=== PATIENT | female | born 1980 | race American Indian/Alaskan Native ===

== ENCOUNTER 2016-12-04 03:00 | Emergency (ER) | payer SELFPAY ==
[2016-12-04 03:35] LABS: Hematocrit 37.3 % (30.3-42.9); Hemoglobin 12.2 gm/dl (10.1-14.3); Mean Corpuscular HGB Conc 33 % (30-34); Mean Corpuscular Hemoglobin 29 pg (28-32); Mean Corpuscular Volume 88 fl (79-97); Platelet Count 386 K/mm3 (140-440); Red Blood Count 4.22 M/mm3 (3.65-5.03); Red Cell Distribution Width 12.5 % (13.2-15.2); White Blood Count 7.1 K/mm3 (4.5-11.0)
[2016-12-04 03:59] LABS: Alanine Aminotransferase 55 units/L (7-56); Albumin 3.8 g/dL (3.9-5); Albumin/Globulin Ratio 1.1 %; Alkaline Phosphatase 122 units/L (35-129); Anion Gap 16 mmol/L; BUN/Creatinine Ratio 15.55; Bilirubin,Total < 0.2 mg/dL (0.1-1.2); Blood Urea Nitrogen 14 mg/dL (7-17); Calcium 9.1 mg/dL (8.4-10.2); Carbon Dioxide 25 mmol/L (22-30); Chloride 102.8 mmol/L (98-107); Glucose 101 mg/dL (65-100); Lipase 64 units/L (13-60); Potassium 4.4 mmol/L (3.6-5.0); Sodium 139 mmol/L (137-145); Total Protein 7.4 g/dL (6.3-8.2)
[2016-12-04 04:56] LABS: Anisocytosis 1+; Basophils % (Manual) 0 % (0.0-1.8); Blastocytes % (Manual) 0 %
[2016-12-04 04:57] LABS: Diff Status Complete
[2016-12-04 07:46] LABS: Bacteria,Urine 1+ /HPF (Negative); Bilirubin,Urine NEG (Negative); Blood,Urine NEG (Negative); Ketones,Urine NEG (Negative); Leukocyte Esterase,Urine LG (Negative); Mucus,Urine 2+ /HPF; Nitrite,Urine POS (Negative); Protein,Urine <15 mg/dL mg/dL (Negative); Urobilinogen,Urine < 2.0 mg/dL (<2.0)
[2016-12-04 07:56] VITALS: BP 116/81
[2016-12-04] MEDS ORDERED: MOTRIN PO ONE (08:19)
--- NOTE | 2016-12-04 08:24 | Emergency Department Report ---
HPI - General Chief Complaint: Abdominal Pain Time Seen by Provider: 12/04/16 07:33 - HPI HPI: 36-year-old -[place] female with a past medical history of a tubal ligation 2003 and migraine headaches comes in today for abdominal pain that started 2 days ago. Patient reports that the pain is located in the suprapubic and lower abdomen. She reports that it also on her right lower pelvic area and right flank pain. Patient reports she notices after having intercourse. She was also reported having bleeding mixed in the mucous of her vaginal discharge after intercourse. She reports that the pain is a 9 out of 10 and is intermittent sharp is at her when laying down and applying pressure nothing makes it worse. She denies any nausea vomiting no fever no chills. ED Past Medical Hx - Past Medical History Previous Medical History?: Yes Hx Headaches / Migraines: Yes - Surgical History Past Surgical History?: Yes Additional Surgical History: tubal ligation - Social History Smoking Status: Unknown if ever smoked Substance Use Type: Marijuana - Medications Home Medications: Home Medications Medication Instructions Recorded Confirmed Last Taken Type Ibuprofen [Motrin 600 MG tab] 600 mg PO Q8H #30 tablet 12/04/16 Unknown Rx Nitrofurantoin Bucks/M-Cryst 100 mg PO Q12HR #14 capsule 12/04/16 Unknown Rx [Macrobid CAP] ED Review of Systems ROS: Stated complaint: RT SIDE ABD PAIN Other details as noted in HPI Constitutional: denies: chills, fever Eyes: denies: eye pain, eye discharge, vision change ENT: as per HPI Respiratory: denies: cough, shortness of breath, wheezing Cardiovascular: denies: chest pain, palpitations Gastrointestinal: abdominal pain. denies: nausea, vomiting, diarrhea, constipation Genitourinary: dyspareunia. denies: urgency, dysuria, frequency, hematuria Musculoskeletal: denies: back pain, joint swelling, arthralgia Skin: denies: rash, lesions Physical Exam - Physical Exam Vital Signs: Vital Signs 12/04/16 12/04/16 03:07 07:55 Temperature 97.9 F Pulse Rate 71 66 Respiratory 18 18 Rate Blood Pressure 108/72 Blood Pressure 116/81 [Right] O2 Sat by Pulse 99 100 Oximetry Physical Exam: GENERAL: Alert and oriented x3, no apparent distress, Normal Gait, atraumatic. HEAD: Head is normocephalic and a-traumatic. EYES: Extra ocular muscles are intact. Pupils are equal, round, and reactive to light and accommodation. LUNGS: Symetrical with respiration, No wheezing, no rales or crackles, CTAB. HEART: S1, S2 present, regular rate and rhythm without murmur, no rubs, no gallops. ABDOMEN: No organomegaly was noted,Positive bowel sounds, soft, and non- distended. . tender to palpation RLQ non tender on other Quadrants, Right CVA tenderness. GENITOURINARY: External genitalia without erythema, exudate or discharge. Vaginal vault is without discharge. Cervix is of normal color without lesion. Cervical os is closed. No bleeding noted. Uterus is noted to be of normal size and nontender. No cervical motion tenderness. No masses are palpated. The adnexa are without masses or tenderness. negative psoas sign, and obturator sign , no deferred pain no rebound pain no guarding EXTREMITIES/MUSCULOSKELETAL: No cyanosis, clubbing, rash, lesions or edema. Full ROM bilaterally. UE/LE Pulses 2+ bilaterally. LE and UE 5+ strength bilaterally NEUROLOGIC: No focal Deficit, Cranial nerves II through XII are grossly intact. No loss of sensation, No facial droop, PSYCHIATRIC: Mood is congruent with affect, SKIN: Warm and dry, No lesions, No ulceration or induration present ED Course Vital Signs 12/04/16 12/04/16 03:07 07:55 Temperature 97.9 F Pulse Rate 71 66 Respiratory 18 18 Rate Blood Pressure 108/72 Blood Pressure 116/81 [Right] O2 Sat by Pulse 99 100 Oximetry ED Medical Decision Making - Lab Data Result diagrams: 12/04/16 03:19 12/04/16 03:19 - Medical Decision Making Patient's been evaluated by this provider fast track. Based on history and examination as well as supporting labs we would discharge patient with a diagnosis of urinary tract infection. Will place patient on Macrobid 100 mg 1 tablet by mouth twice a day for 7 days. We'll ask patient to follow up with her primary care provider that we will refer her to for repeat of urine patient verbalizes understanding. We did give patient ibuprofen 600 mg to address her pain. Critical care attestation.: If time is entered above; I have spent that time in minutes in the direct care of this critically ill patient, excluding procedure time. ED Disposition Clinical Impression: UTI (urinary tract infection) Qualifiers: Urinary tract infection type: site unspecified Hematuria presence: without hematuria Qualified Code(s): N39.0 - Urinary tract infection, site not specified Disposition: DISCHARGED TO HOME OR SELFCARE Is pt being admited?: No Does the pt Need Aspirin: No Condition: Stable Instructions: Abdominal Pain (ED) Additional Instructions: Please take your antibiotics for your urinary tract infection as prescribed he can take Tylenol or Motrin for pain. Very importantly to follow up with a primary care provider to have a repeat urine. Prescriptions: Ibuprofen [Motrin 600 MG tab] 600 mg PO Q8H #30 tablet Nitrofurantoin Bucks/M-Cryst [Macrobid CAP] 100 mg PO Q12HR #14 capsule Referrals: PRIMARY CARE, [Primary Care Provider] - 3-5 Days Forms: Work/School Release Form(ED)
== END 2016-12-04 08:43 | disposition home or self-care (01) ==
LOC: ED 03:00
DX: N39.0 Urinary tract infection, site not specified (principal); G43.909 Migraine, unspecified, not intractable, without status migrainosus; F12.90 Cannabis use, unspecified, uncomplicated
CPT/HCPCS: 36415; 80053; 81001; 81025; 83690; 85007; 85025; 99284